=== PATIENT | male | born 1960 | race Caucasian/White ===

== ENCOUNTER → 2021-03-05 | Outpatient (CLI) | payer OTHER ==
--- NOTE | 2021-03-05 14:23 | REP ---
INDICATION: PAIN. COMPARISON: 04/04/2020 TECHNIQUE: Four views FINDINGS: [id number] degenerative changes again seen throughout the foot status quo. No acute fractures identified. There is a small plantar calcaneal heel spur which appear stable. IMPRESSION: Stable appearing chronic changes <Electronically signed by John Wade > 03/05/21 [id number]
== END ==
LOC: M WUC 13:54
PROVIDERS: ATTEND Nurse Practitioner Family
DX: M79.672 Pain in left foot (principal)

== ENCOUNTER → 2021-03-19 | Outpatient (CLI) | payer OTHER ==
--- NOTE | 2021-03-19 10:29 | REP ---
INDICATION: STRAIN MSL/TND LNG EXTN MSL TOE AT ANK/FT Devika MELÉNDEZ F. COMPARISON: None. TECHNIQUE: Multiple sequences are obtained in the axial, coronal and sagittal planes. FINDINGS: The Achilles, anterior tibial, posterior tibial, flexor hallucis longus, flexor digitorum longus and peroneal tendons are all intact without significant tenosynovitis. The anterior and posterior talofibular, calcaneofibular and deltoid ligaments appear intact. Plantar tendon appears intact. There is no plantar fasciitis. Sinus tarsi appears unremarkable. No ganglion cyst is seen. There is normal amount of joint fluid. At the medial talar dome, there is focal cartilaginous fissuring with underlying subcortical marrow edema 4-5 mm in diameter most compatible with early osteochondral lesion. There is subcortical marrow edema and cystic change in the navicular bone, adjacent cuneiform bones and base of 3rd and 4th metatarsals compatible with arthritic changes at the intervening joints.. IMPRESSION: No evidence of tendon or ligament tear. Early osteochondral lesion medial talar dome. 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 <Electronically signed by Beto Echevarria > 03/19/21 [id number]
== END ==
LOC: M PLARAD 07:52
PROVIDERS: ATTEND Podiatrist
DX: S96.1 Injury of muscle and tendon of long extensor muscle of toe at ankle and foot level (principal); X58.XXXD Exposure to other specified factors, subsequent encounter; Y92.9 Unspecified place or not applicable

== ENCOUNTER → 2021-12-23 | Outpatient (CLI) | payer OTHER | LOC: M LABSMTC 09:55 | PROVIDERS: ATTEND Anesthesiology | DX: Z01.812 Encounter for preprocedural laboratory examination (principal); Z20.822 Contact with and (suspected) exposure to COVID-19 ==

== ENCOUNTER 2021-12-27 06:11 | Day surgery (SDC) | payer OTHER ==
[~2021-12-27] VITALS: Ht 170.2 cm; Wt 100.2 kg
[~2021-12-27 06:11] MED LIST: LR 1,000 ML IV ONE; ceFAZolin SOD 2 GM in IV 1 EA IV ONE
[2021-12-27] MEDS ORDERED: BUPIVACAINE LIPOSOME/PF 1.3% 20ML VIAL (13.3MG/ML)(EXPAREL)(C9290 PER1MG) As Ordered ONE (07:11)
[2021-12-27] MEDS ORDERED: BUPIVACAINE HCL 0.25% 10ML VIAL As Ordered ONE (07:11)
[2021-12-27] MEDS ORDERED: MIDAZOLAM INJ 2MG/2ML VIAL (J2250 PER 1MG) As Ordered ONE (07:16)
[2021-12-27] MEDS ORDERED: dexameTHASONE 4 MG/ML 1ML VIAL (J1100 PER 1MG) As Ordered ONE (07:16)
[2021-12-27] MEDS ORDERED: propofoL 200 MG/20 ML VIAL As Ordered ONE (07:16)
[2021-12-27] MEDS ORDERED: fentaNYL 100 MCG/2 ML INJECTION As Ordered ONE (07:16)
[2021-12-27] MEDS ORDERED: METOCLOPRAMIDE INJ 10MG/2ML VIAL (J2765 PER 1) As Ordered ONE (07:16)
[2021-12-27] MEDS ORDERED: ONDANSETRON 4MG/2ML VIAL As Ordered ONE (07:16)
[2021-12-27] MEDS ORDERED: KETOROLAC 60MG 2ML VIAL As Ordered ONE (07:16)
[2021-12-27] MEDS ORDERED: LIDOCAINE 2% 100MG/5ML SDV (FOR ANES.) As Ordered ONE (07:16)
[2021-12-27] MEDS ORDERED: ACETAMINOPHEN 1000MG 100ML IV BTL (OFIRMEV) (J0131 PER 10MG) As Ordered ONE (08:05)
[2021-12-27] MEDS ORDERED: LIDOCAINE W/EPINEPHRINE 1% 20ML VIAL As Ordered ONE (08:16)
[2021-12-27] MEDS ORDERED: fentaNYL 100 MCG/2 ML INJECTION IV PRN (08:45)
[2021-12-27] MEDS ORDERED: oxyCODONE 5MG TAB PO PRN (08:45)
[2021-12-27] MEDS ORDERED: LR 1,000 ML IV SCH (08:45)
[2021-12-27] MEDS ORDERED: ONDANSETRON 4MG/2ML VIAL IV PRN (08:45)
[2021-12-27 10:00] VITALS: BP 116/64
[2021-12-27] MEDS ORDERED: IBUPROFEN 600MG TAB PO SCH (12:00)
== END 2021-12-27 10:50 | disposition home or self-care (01) ==
LOC: M SDC 06:11
PROVIDERS: ATTEND Surgery
DX: K42.0 Umbilical hernia with obstruction, without gangrene (principal); F17.290 Nicotine dependence, other tobacco product, uncomplicated
CPT/HCPCS: 49587; 88302; 93005; C9290; J0131; J0690; J1100; J1885; J2250; J2405; J2765; J3010

== ENCOUNTER → 2022-07-25 | Outpatient (REF) | payer SELFPAY | LOC: M WUC 09:17 | PROVIDERS: ATTEND Student in an Organized Health Care Education/Training Program | DX: J06.9 Acute upper respiratory infection, unspecified (principal) ==

== ENCOUNTER → 2024-02-17 | Outpatient (CLI) | payer OTHER | LOC: M WUC 09:25 | PROVIDERS: ATTEND Nurse Practitioner Family | DX: M25.532 Pain in left wrist (principal); M19.032 Primary osteoarthritis, left wrist ==

== ENCOUNTER 2024-05-26 08:12 | Day surgery (SDC) | payer OTHER ==
[~2024-05-26] VITALS: Ht 170.2 cm; Wt 98.2 kg
[2024-05-26] MEDS: NS 1,000 ML IV ONE (08:27)
[2024-05-26] MEDS ORDERED: propofoL 200 MG/20 ML VIAL As Ordered ONE (09:10)
[2024-05-26] MEDS ORDERED: LIDOCAINE 2% 100MG/5ML SDV (FOR ANES.) As Ordered ONE (09:10)
[2024-05-26 09:30] VITALS: TEMP 97.3
[2024-05-26 09:46] VITALS: BP 123/75; O2SAT 98
== END 2024-05-26 09:51 | disposition home or self-care (01) ==
LOC: M OPP 08:12
PROVIDERS: ATTEND Surgery
DX: Z12.11 Encounter for screening for malignant neoplasm of colon (principal); K64.2 Third degree hemorrhoids; Q43.8 Other specified congenital malformations of intestine; F17.290 Nicotine dependence, other tobacco product, uncomplicated; Z79.1 Long term (current) use of non-steroidal anti-inflammatories (NSAID)

== ENCOUNTER → 2024-12-09 | Outpatient (CLI) | payer OTHER | LOC: M WUC 12:39 | PROVIDERS: ATTEND Nurse Practitioner Family | DX: S63.601A Unspecified sprain of right thumb, initial encounter (principal); W18.30XA Fall on same level, unspecified, initial encounter; Y92.009 Unspecified place in unspecified non-institutional (private) residence as the place of occurrence of the external cause ==